=== PATIENT | female | born 1980 | race Caucasian/White ===

== ENCOUNTER 2017-12-15 18:42 | Emergency (ER) | payer SELFPAY ==
[2017-12-15 19:15] VITALS: BP 160/101; PULSE 78; RESP 14; TEMP 36.2; O2SAT 98
== END 2017-12-15 21:57 | disposition left against medical advice (07) ==
DX: R10.9 Unspecified abdominal pain (principal)
CPT/HCPCS: 99281; 99282

== ENCOUNTER → 2020-01-19 10:57 | Outpatient (CLI) | payer OTHER, MEDICAID, SELFPAY ==
--- NOTE | 2020-01-19 11:01 | DI.RAD.S_ITS ---
PROCEDURE: XR CHEST 2V INDICATIONS: shortness of breath TECHNIQUE: 2 views of the chest were acquired. COMPARISON: None. FINDINGS: Surgical changes and devices: None. Lungs and pleura: Lungs are clear. No pleural effusions or pneumothorax. Mediastinum: Mediastinal contours are normal. Heart size is normal. Bones and chest wall: No suspicious bony abnormalities. Soft tissues appear unremarkable. IMPRESSION: Normal for age, source of current shortness of breath symptoms is not seen. Dictated by: Kvng Mora M.D. on 01/19/2020 at 12:05 Approved by: Kvng Mora M.D. on 01/19/2020 at 12:05
== END ==
PROVIDERS: PCP Registered Nurse; Referring Provider Registered Nurse; Visit Provider Registered Nurse
DX: R06.02 Shortness of breath (principal)
CPT/HCPCS: 71046

== ENCOUNTER → 2020-01-20 09:37 | Outpatient (CLI) | payer OTHER, MEDICAID, SELFPAY ==
[2020-01-20 10:52] LABS: Add Manual Diff / Slide Review NO; Basophils Absolute Auto 0 /uL (0-100); Basophils Percent Auto 0.7 % (0-2); Eosinophils Absolute Auto 200 /uL (0-450); Eosinophils Percent Auto 2.7 % (2-4); Hemoglobin 11.8 g/dL (12.0-16.0); Lymphocytes Absolute Auto 1500 /uL (1100-4500); Lymphocytes Percent Auto 24.8 % (25-40); Mean Corpuscular Hemoglobin 24.9 PG (26-34); Mean Corpuscular Volume 80.5 fL (80-100); Monocytes Absolute Auto 400 /uL (0-900); Monocytes Percent Auto 6.5 % (3-14); Neutrophils Absolute Auto 4000 /uL (1500-7000); Neutrophils Percent Auto 65.3 % (50-75); Platelet Count 243 X10^3/uL (150-400); Red Blood Cell Count 4.73 X10^6/uL (4.0-5.2); Red Cell Distribution Width 18.6 % (11.6-14.8); White Blood Cell Count 6.1 X10^3/uL (4.5-11.0)
[2020-01-20 11:08] LABS: Alanine Aminotransferase 32 IU/L (<35); Albumin 3.7 g/dL (3.5-5.0); Albumin Globulin Ratio 1.2 (1.0-2.8); Alkaline Phosphatase 146 U/L (38-126); Aspartate Aminotransferase 36 IU/L (14-36); BUN Creatinine Ratio 14.3 (6-22); Bilirubin Total 0.4 mg/dL (0.2-1.3); Blood Urea Nitrogen 9 mg/dL (7-17); Calcium 8.9 mg/dL (8.4-10.2); Carbon Dioxide 26 mmol/L (22-32); Chloride 105 mmol/L (98-107); Cholesterol 205 mg/dL (140-199); Estimated Glomerular Filt Rate > 60.0 mL/min (>60); Globulin 3.2 g/dL (1.7-4.1); Glucose 97 mg/dL (70-100); HDL Cholesterol 48 mg/dL (40-60); HEMOLYSIS < 15 (0-50); LDL Cholesterol Calculated 125 mg/dL (<100); Potassium 4.3 mmol/L (3.4-5.1); Sodium 137 mmol/L (137-145); Total Protein 6.9 g/dL (6.3-8.2); Triglycerides 160 mg/dL (35-150)
[2020-01-20 11:15] LABS: NT-proBNP (BNP-Adult 18+) 59 pg/mL (<125)
[2020-01-20 11:49] LABS: HIV 1 & 2 Ab/Ag 4th Gen Combo NEGATIVE (NEGATIVE)
[2020-01-20 12:13] LABS: Urine N gonorrhoeae NOT DETECTED
[2020-01-20 12:14] LABS: Urine Chlamydia NOT DETECTED
[2020-01-20 14:53] LABS: UR Morphine/Opiate cutoff 300 Negative (Negative); Ur Creatinine Normal (Normal); Ur Specific Gravity Normal (Normal); Urine Amphetamines Negative (Negative); Urine Barbiturates Negative (Negative); Urine Benzodiazepines Negative (Negative); Urine Cocaine Negative (Negative); Urine MDMA Negative (Negative); Urine Methadone Negative (Negative); Urine Methamphetamines Negative (Negative); Urine Oxycodone Negative (Negative); Urine Phencyclidine Negative (Negative); Urine Tetrahydrocannabinol Negative (Negative); Urine Tricyclic Antidepressant Negative (Negative); Urine pH Normal (Normal)
[2020-01-21 04:36] LABS: RPR Screen Non Reactive (Non Reactive)
[2020-01-21 05:10] LABS: HBsAg Screen Negative (Negative); Hepatitis A Antibody IgM Negative (Negative); Hepatitis B Core Antibody IgM Negative (Negative); Hepatitis C Antibody 0.7 s/co ratio (0.0-0.9)
[2020-01-24 08:11] LABS: HSV 1 DNA Negative (Negative); HSV 2 DNA Negative (Negative)
== END ==
PROVIDERS: PCP Registered Nurse; Referring Provider Registered Nurse; Visit Provider Registered Nurse
DX: I10 Essential (primary) hypertension (principal); E66.01 Morbid (severe) obesity due to excess calories; Z11.3 Encounter for screening for infections with a predominantly sexual mode of transmission; R06.02 Shortness of breath; R60.0 Localized edema; Z00.01 Encounter for general adult medical examination with abnormal findings
CPT/HCPCS: 36415; 80053; 80061; 80074; 80305; 83880; 85025; 86592; 87389; 87491; 87529; 87591

== ENCOUNTER → 2020-06-19 13:16 | Outpatient (CLI) | payer OTHER, MEDICAID, SELFPAY ==
[2020-06-19 14:57] LABS: Add Manual Diff / Slide Review NO; Basophils Absolute Auto 0 /uL (0-100); Basophils Percent Auto 0.6 % (0-2); Eosinophils Absolute Auto 200 /uL (0-450); Eosinophils Percent Auto 3.1 % (2-4); Hematocrit 38.3 % (36-46); Lymphocytes Absolute Auto 1500 /uL (1100-4500); Lymphocytes Percent Auto 22.4 % (25-40); Mean Corpuscular HGB Conc 31.4 % (30-36); Mean Corpuscular Hemoglobin 25.9 PG (26-34); Mean Corpuscular Volume 82.6 fL (80-100); Monocytes Absolute Auto 500 /uL (0-900); Monocytes Percent Auto 7.1 % (3-14); Neutrophils Absolute Auto 4400 /uL (1500-7000); Neutrophils Percent Auto 66.8 % (50-75); Platelet Count 242 X10^3/uL (150-400); Red Blood Cell Count 4.63 X10^6/uL (4.0-5.2); Red Cell Distribution Width 19.8 % (11.6-14.8); White Blood Cell Count 6.5 X10^3/uL (4.5-11.0)
[2020-06-19 15:09] LABS: Alanine Aminotransferase 22 IU/L (<35); Albumin 3.7 g/dL (3.5-5.0); Albumin Globulin Ratio 1.2 (1.0-2.8); Alkaline Phosphatase 123 U/L (38-126); Aspartate Aminotransferase 29 IU/L (14-36); BUN Creatinine Ratio 18.2 (6-22); Bilirubin Total 0.4 mg/dL (0.2-1.3); Blood Urea Nitrogen 10 mg/dL (7-17); Calcium 8.5 mg/dL (8.4-10.2); Carbon Dioxide 30 mmol/L (22-32); Chloride 106 mmol/L (98-107); Cholesterol 212 mg/dL (140-199); Estimated Glomerular Filt Rate > 60.0 mL/min (>60); Globulin 3.1 g/dL (1.7-4.1); Glucose 104 mg/dL (70-100); HDL Cholesterol 43 mg/dL (40-60); HEMOLYSIS < 15 (0-50); LDL Cholesterol Calculated 140 mg/dL (<100); Sodium 138 mmol/L (137-145); Total Protein 6.8 g/dL (6.3-8.2); Triglycerides 143 mg/dL (35-150)
[2020-06-19 15:21] LABS: Free T4, Direct Thyroxine 1.14 ng/dL (0.78-2.19)
[2020-06-19 15:35] LABS: Thyroid Stimulating Hormone 0.799 uIU/mL (0.47-4.68)
== END ==
PROVIDERS: PCP Registered Nurse; Referring Provider Registered Nurse; Visit Provider Registered Nurse
DX: I10 Essential (primary) hypertension (principal); D64.9 Anemia, unspecified; E78.5 Hyperlipidemia, unspecified
CPT/HCPCS: 36415; 80053; 80061; 84439; 84443; 85025

== ENCOUNTER → 2020-10-25 08:19 | Outpatient (CLI) | payer OTHER, MEDICAID, SELFPAY ==
--- NOTE | 2020-10-25 08:25 | DI.RAD.S_ITS ---
PROCEDURE: XR FOOT RT MIN 3V INDICATIONS: right foot pain TECHNIQUE: 3 views of the foot were acquired. COMPARISON: None. FINDINGS: Bones: No fractures or dislocations. No suspicious bony lesions. Small plantar and dorsal calcaneal bone spurs. Soft tissues: No tibiotalar joint effusion. Achilles tendon appears normal. IMPRESSION: No fracture. No osseous lesion. If symptoms and/or clinical suspicion for pathology persists, further assessment with repeat radiographs (7-10 days) or advanced imaging (e.g. CT, MRI or bone scan) should be considered. Dictated by: Louise Mims MD, PhD on 10/25/2020 at 17:27 Approved by: Louise Mims MD, PhD on 10/25/2020 at 17:27
[2020-10-25 09:35] LABS: Alanine Aminotransferase 30 IU/L (<35); Albumin 3.5 g/dL (3.5-5.0); Albumin Globulin Ratio 1.2 (1.0-2.8); Alkaline Phosphatase 126 U/L (38-126); Aspartate Aminotransferase 35 IU/L (14-36); BUN Creatinine Ratio 14.1 (6-22); Bilirubin Total 0.2 mg/dL (0.2-1.3); Blood Urea Nitrogen 9 mg/dL (7-17); Calcium 9.6 mg/dL (8.4-10.2); Carbon Dioxide 28 mmol/L (22-32); Chloride 105 mmol/L (98-107); Estimated Glomerular Filt Rate > 60.0 mL/min (>60); Glucose 88 mg/dL (70-100); HEMOLYSIS < 15 (0-50); Potassium 4.4 mmol/L (3.4-5.1); Sodium 140 mmol/L (137-145); Total Protein 6.5 g/dL (6.3-8.2)
== END ==
PROVIDERS: PCP Registered Nurse; Referring Provider Registered Nurse; Visit Provider Registered Nurse
DX: M25.571 Pain in right ankle and joints of right foot (principal); I10 Essential (primary) hypertension
CPT/HCPCS: 36415; 73630; 80053

== ENCOUNTER 2020-10-25 17:04 | Observation (INO) | payer OTHER, MEDICAID, SELFPAY ==
[2020-10-25] VITALS (13 sets, daily range): BP systolic 138–188; BP diastolic 76–94; PULSE 59–97; RESP 14–24; TEMP 36.8; O2SAT 91–100; BMI 52.6
[2020-10-25 18:04] LABS: Add Manual Diff / Slide Review NO; Basophils Absolute Auto 0 /uL (0-100); Basophils Percent Auto 0.6 % (0-2); Eosinophils Absolute Auto 100 /uL (0-450); Eosinophils Percent Auto 1.7 % (2-4); Hematocrit 38.9 % (36-46); Hemoglobin 12.5 g/dL (12.0-16.0); Lymphocytes Absolute Auto 1600 /uL (1100-4500); Lymphocytes Percent Auto 19.3 % (25-40); Mean Corpuscular HGB Conc 32.2 % (30-36); Mean Corpuscular Hemoglobin 26.6 PG (26-34); Mean Corpuscular Volume 82.5 fL (80-100); Monocytes Absolute Auto 600 /uL (0-900); Monocytes Percent Auto 7.9 % (3-14); Neutrophils Absolute Auto 5800 /uL (1500-7000); Neutrophils Percent Auto 70.5 % (50-75); Platelet Count 242 X10^3/uL (150-400); Red Blood Cell Count 4.71 X10^6/uL (4.0-5.2); Red Cell Distribution Width 17.5 % (11.6-14.8); White Blood Cell Count 8.3 X10^3/uL (4.5-11.0)
--- NOTE | 2020-10-25 18:11 | ED.ABDPAIN ---
HPI - Abdominal Pain General Chief Complaint: Abdominal Pain Stated Complaint: rib and abdominal pain Time Seen by Provider: 10/25/20 17:59 Source: patient Mode of arrival: Ambulatory Limitations: no limitations History of Present Illness HPI narrative: 40-year-old female smoker with history of hypertension and hyperlipidemia presents with a chief complaint of rather sudden onset severe epigastric and right upper quadrant pain that started this afternoon. She states any motion including deep breath seems to make it worse. She denies any relation between eating or drinking. She denies nausea, vomiting or diarrhea. She denies any injury or overuse. She has had no fever or chills. MD complaint: abdominal pain Onset (ago): hour(s) Pain Consistency: constant Location: RUQ and epigastric Severity: moderate Quality: cramping and stabbing Radiation: none Relieving factors: rest Exacerbating factors: movement Associated symptoms: denies other symptoms Related Data Previous Rx's Medication Instructions Recorded losartan 50 mg tablet 50 mg PO DAILY 90 Days #90 tab 10/25/20 simvastatin 20 mg tablet 20 mg PO BEDTIME 90 Days #90 tab 10/25/20 Allergies Allergy/AdvReac Type Severity Reaction Status Date / Time No Known Drug Allergies Allergy Verified 10/25/20 17:36 Review of Systems Constitutional Constitutional: Denies chills, Denies fatigue, Denies fever(s), Denies frequent falls, Denies lethargy and Denies weakness Eyes Eyes: Denies change in vision, Denies eye discharge, Denies irritation and Denies loss of vision ENT Ears, Nose, Mouth, and Throat: Denies change in voice, Denies dizziness, Denies neck pain, Denies sore throat and Denies throat swelling Cardiovascular Cardiovascular: Denies chest pain, Denies irregular heart rhythm, Denies lightheadedness, Denies palpitations, Denies dyspnea, Denies dyspnea on exertion and Denies orthopnea Respiratory Respiratory: Denies cough, Denies dyspnea, Denies dyspnea on exertion and Denies wheezing Gastrointestinal Gastrointestinal: Reports abdominal pain, Denies change in bowel habits, Denies diarrhea, Denies nausea and Denies vomiting Musculoskeletal Musculoskeletal: Denies neck pain and Denies numbness Integumentary/Breasts Skin/Breast: Denies pruritus, Denies erythema, Denies rash and Denies wounds Neurologic Neurologic: Denies behavioral changes, Denies confusion, Denies dizziness, Denies frequent falls, Denies loss of vision, Denies numbness and Denies weakness Psychiatric Psychiatric: Denies anxiety, Denies behavioral changes, Denies confusion, Denies depression, Denies homicidal ideation and Denies suicidal ideation Endocrine Endocrine: Denies fatigue, Denies flushing and Denies palpitations Hematologic/Lymphatic Hematologic/Lymphatic: Denies easy bruising Allergic/Immunologic Allergic/Immunologic: Denies urticaria, Denies throat swelling and Denies wheezing Patient History Medical History Carpal tunnel syndrome (~2009) Chicken pox Right ankle pain Social History Smoking Status: Current every day smoker Smoking Status: Current every day smoker alcohol intake frequency: 3 or more drinks per day Substance Use Type: marijuana Exam Narrative Exam Narrative: GENERAL: [40] year old patient appears stated age. Well-nourished, well-developed patient, in mild distress. Tearful, complaining of pain, rubbing her upper abdomen HEAD: Atraumatic. Normocephalic. EYES: Pupils equal round and reactive. Extraocular motions intact. No scleral icterus. No injection or drainage. ENT: Nose without bleeding, purulent drainage. Throat without erythema, tonsillar hypertrophy or exudate. Airway patent. NECK: Trachea midline. Non tender CARDIOVASCULAR: Regular rate and rhythm without murmurs, gallops, or rubs. RESPIRATORY: Clear to auscultation. Breath sounds equal bilaterally. No wheezes, rales, or rhonchi. GASTROINTESTINAL: Abdomen soft, severe upper belly pain on exam, nondistended. EXTREMITIES: No edema or joint tenderness. BACK: Nontender without deformity or crepitance. No flank tenderness. NEURO: AOx3. SKIN: No rash or erythema of visible areas Initial Vital Signs Initial Vital Signs: Vital Signs Temperature 98.2 F 10/25/20 17:33 Pulse Rate 75 10/25/20 17:33 Respiratory Rate 20 10/25/20 17:33 Blood Pressure 188/87 H 10/25/20 17:33 Pulse Oximetry 98 10/25/20 17:33 Course Orders Ordered: ED Orders 10/25/20 17:39 EKG-12 Lead Stat 10/25/20 17:56 Complete Blood Count AUTO DIFF Stat Comprehensive Metabolic Panel Stat Lipase Stat 10/25/20 18:18 US abdomen limited Stat 10/25/20 18:50 COVID19 - ADMIT ([employer] swab/PCR) Stat Sodium Chloride (Normal Saline 0.9%) 1,000 mls @ 150 mls/hr IV CONT ESTER Last Admin: 10/25/20 19:18 Dose: 150 mls/hr Documented by: CLAUDIA Discontinued Medications Hydromorphone HCl (Hydromorphone 0.5 Mg Inj) 0.5 mg IV NOW ONE Stop: 10/25/20 19:11 Last Admin: 10/25/20 19:18 Dose: 0.5 mg Documented by: CLAUDIA Piperacillin Sod/Tazobactam (Sod 4.5 gm/ Sodium Chloride) 100 mls @ 200 mls/hr IV NOW ONE Stop: 10/25/20 19:12 Last Infusion: 10/25/20 20:45 Dose: 0 mls/hr Documented by: Admin: 10/25/20 19:18 Dose: 200 mls/hr Documented by: CLAUDIA Ondansetron HCl (Ondansetron 4 Mg/2 Ml Inj) 4 mg IV NOW ONE Stop: 10/25/20 19:11 Last Admin: 10/25/20 19:18 Dose: 4 mg Documented by: CLAUDIA Vital Signs Vital signs: Vital Signs - 8 hr 10/25/20 17:33 Temperature 98.2 F Pulse Rate 75 Respiratory Rate 20 Blood Pressure 188/87 H Pulse Oximetry 98 MDM - Abdominal Pain Lab Data Result diagrams: 10/25/20 17:56 10/25/20 17:56 Labs: Lab Results 10/25/20 10/25/20 10/25/20 Range/Units 17:56 17:56 18:50 WBC 8.3 (4.5-11.0) X10^3/uL RBC 4.71 (4.0-5.2) X10^6/uL Hgb 12.5 (12.0-16.0) g/dL Hct 38.9 (36-46) % MCV 82.5 (80-100) fL MCH 26.6 (26-34) PG MCHC 32.2 (30-36) % RDW 17.5 H (11.6-14.8) % Plt Count 242 (150-400) X10^3/uL Neut % (Auto) 70.5 (50-75) % Lymph % (Auto) 19.3 L (25-40) % [place] % (Auto) 7.9 (3-14) % Eos % (Auto) 1.7 L (2-4) % Baso % (Auto) 0.6 (0-2) % Neut # (Auto) 5800 (4702-8340) /uL Lymph # (Auto) 1600 (4353-7239) /uL [place] # (Auto) 600 (0-900) /uL Eos # (Auto) 100 (0-450) /uL Baso # (Auto) 0 (0-100) /uL Sodium 136 L (137-145) mmol/L Potassium 3.9 (3.4-5.1) mmol/L Chloride 105 (98-107) mmol/L Carbon Dioxide 24 (22-32) mmol/L BUN 7 (7-17) mg/dL Creatinine 0.56 (0.52-1.04) mg/dL Estimated GFR > 60.0 (>60) mL/min BUN/Creatinine Ratio 12.5 (6-22) Glucose 122 H (70-100) mg/dL Calcium 9.6 (8.4-10.2) mg/dL Total Bilirubin 0.3 (0.2-1.3) mg/dL AST 37 H (14-36) IU/L ALT 31 (<35) IU/L Alkaline Phosphatase 124 (38-126) U/L Total Protein 6.9 (6.3-8.2) g/dL Albumin 3.7 (3.5-5.0) g/dL Globulin 3.2 (1.7-4.1) g/dL Albumin/Globulin Ratio 1.2 (1.0-2.8) Lipase 33 (23-300) U/L SARS-CoV-2 (PCR) Negative (Negative) Imaging Data US - abdomen: Radiologist's Impression: [address] [id number] ReportSigned Patient: Lizzy Early AMR#: [id number]: 1980Acct:[id number]/Sex: 40 / FDate of Service: 10/25/20Loc: EDAccession Number: [id number] Procedure: US abdomen limited Ordering Provider: Shoaib Esparza D.O. PROCEDURE: US ABDOMEN LIMITED INDICATIONS: RUQ pain TECHNIQUE: Real-time scanning was performed of the abdominal and retroperitoneal organs, with image documentation. COMPARISON: None. FINDINGS: Liver demonstrates diffuse fatty infiltration and mild enlargement. Multiple calculi within the gallbladder lumen are present, including within neck. No gallbladder wall thickening. IMPRESSION: 1. Hepatic steatosis. 2. Cholelithiasis with no evidence of cholecystitis Dictated by: Titus Pineda M.D. on 10/25/2020 at 19:00 Approved by: Titus Pineda M.D. on 10/25/2020 at 19:01 Discharge Plan Departure Patient Disposition: Admitted As Inpatient Clinical Impression: Cholelithiasis Admit Date/Time: 10/25/20 19:18 Admit Provider: Gabriel Melendez
--- NOTE | 2020-10-25 18:18 | DI.US.S_ITS ---
PROCEDURE: US ABDOMEN LIMITED INDICATIONS: RUQ pain TECHNIQUE: Real-time scanning was performed of the abdominal and retroperitoneal organs, with image documentation. COMPARISON: None. FINDINGS: Liver demonstrates diffuse fatty infiltration and mild enlargement. Multiple calculi within the gallbladder lumen are present, including within neck. No gallbladder wall thickening. IMPRESSION: 1. Hepatic steatosis. 2. Cholelithiasis with no evidence of cholecystitis Dictated by: Titus Pineda M.D. on 10/25/2020 at 19:00 Approved by: Titus Pineda M.D. on 10/25/2020 at 19:01
[2020-10-25 18:22] LABS: Alanine Aminotransferase 31 IU/L (<35); Albumin 3.7 g/dL (3.5-5.0); Albumin Globulin Ratio 1.2 (1.0-2.8); Alkaline Phosphatase 124 U/L (38-126); Aspartate Aminotransferase 37 IU/L (14-36); BUN Creatinine Ratio 12.5 (6-22); Bilirubin Total 0.3 mg/dL (0.2-1.3); Blood Urea Nitrogen 7 mg/dL (7-17); Calcium 9.6 mg/dL (8.4-10.2); Carbon Dioxide 24 mmol/L (22-32); Chloride 105 mmol/L (98-107); Estimated Glomerular Filt Rate > 60.0 mL/min (>60); Globulin 3.2 g/dL (1.7-4.1); Glucose 122 mg/dL (70-100); HEMOLYSIS < 15 (0-50); Lipase 33 U/L (23-300); Potassium 3.9 mmol/L (3.4-5.1); Sodium 136 mmol/L (137-145); Total Protein 6.9 g/dL (6.3-8.2)
[2020-10-25] MEDS: SODIUM CHLORIDE 0.9% 1,000 ML 150 ML IV (19:18)
[2020-10-25] MEDS: HYDROMORPHONE 0.5 MG INJ IV (19:18)
[2020-10-25] MEDS: PIPERACILLIN/TAZO 4.5 GM in SODIUM CHLORIDE 0.9% 100 ML 200 ML IV (19:18)
[2020-10-25] MEDS: ONDANSETRON 4 MG/2 ML INJ IV (19:18)
[2020-10-25 19:49] LABS: COVID19 - ADMIT (NP swab/PCR) Negative (Negative)
[2020-10-26] VITALS (18 sets, daily range): BP systolic 105–147; BP diastolic 42–97; PULSE 58–84; RESP 12–31; TEMP 35.9–36.9; O2SAT 94–100; BMI 52.5
--- NOTE | 2020-10-26 | PATH_ITS ---
[facility] Accession Number: [id number] . 01 Material submitted: . gallbladder - GALLBLADDER . 02 Diagnosis: Gallbladder, Cholecystectomy: Chronic cholecystitis with cholelithiasis. Negative for dysplasia and malignancy. [facility] 10/31/2020 0922 Local . 02 Electronically signed: . Lizzy Martinez MD, Pathologist NPI- [id number] . 01 Gross description: . The specimen is received in formalin, labeled gallbladder and consists of a 7.0 x 3.0 x 2.5 cm intact gallbladder with a 0.5 cm in diameter cystic duct. The serosa is johnson-pink and smooth. Opening reveals green viscous bile with a 2.5 x 1.5 x 1.5 cm green bosselated cholelith lodged within the neck of the specimen. The mucosa is johnson-green and velvety and the wall thickness measures 0.3 cm. Softlines Supervisor sections are submitted to include the en face cystic duct margin (blue) in cassette A1. (EA:[id number]) /V 10/30/2020 1040 Local . 02 Pathologist provided ICD-10: K80.60 . 02 CPT . 849586 Performed at: 01 [facility] [address], [place], [place] [id number] MD Zheng Reddy MD Phone: [phone] Performed at: 02 [facility] [address] [place], [place] [id number] MD Lizzy Martinez MD Phone: [phone]
[2020-10-26] MEDS: PIPERACILLIN/TAZO 4.5 GM in SODIUM CHLORIDE 0.9% 100 ML 25 ML IV ×3 (01:09→16:08)
--- NOTE | 2020-10-26 01:54 | PC.NURSE ---
0015 Pt. admitted to room 222, oriented to her room. Showed her how to use her call light TV & bed controls. Denies any pain & nausea upon admit. Will continue POC & monitor.
[2020-10-26] MEDS: SODIUM CHLORIDE 0.9% 1,000 ML 150 ML IV ×2 (05:27→11:39)
--- NOTE | 2020-10-26 09:19 | PM.HP.1 ---
History of Present Illness History of Present Illness Date Patient Seen: 10/26/20 Time Patient Seen: 09:19 Chief complaint: rib and abdominal pain Narrative: Lizzy is a 40-year-old woman history of hypertension and obesity who is admitted to the hospital for acute cholecystitis. Yesterday she developed severe right upper quadrant pain with associated bloating and nausea. In the emergency room, afebrile WBC 8 total bilirubin 0.3 normal LFTs. Ultrasound of the right upper quadrant demonstrated multiple gallstones including a stone stuck within the neck of the gallbladder at that time there was no pericholecystic fluid or wall thickening. Overnight she received Zosyn and her pain has improved but not resolved. Over the past 5 years she has had several similar episodes. Medical history is significant for obesity, BMI 53, hypertension, alcohol and methamphetamine use. She consumes approximately 1 L of hard liquor every 3 days, last methamphetamine use was 3 days ago. Prior abdominal surgery includes laparoscopic appendectomy. Patient History Medical History Alcohol abuse Carpal tunnel syndrome (~2009) Chicken pox Essential hypertension Methamphetamine abuse Morbid obesity Right ankle pain Surgical History History of appendectomy Family & Social History Social History: household members significant other Prior Living Arrangements Apartment/Condo Safety & Behavioral: Feels Safe in Current Yes Environment Been Physically Hurt or No Threatened By a Person Suicidal Ideation Description None Suicide Plan Description No Plan Tobacco & Substance use: Tobacco type cigarettes Smoking Status Current every day smoker alcohol intake current alcohol intake frequency 3 or more drinks per day Substance Use Type marijuana Meds Home Medications and Allergies Home Medications Medication Instructions Recorded Confirmed Type losartan 50 mg tablet 50 mg PO DAILY 90 Days #90 tab 10/25/20 10/26/20 Rx simvastatin 20 mg tablet 20 mg PO BEDTIME 90 Days #90 tab 10/25/20 10/26/20 Rx Allergies Allergy/AdvReac Type Severity Reaction Status Date / Time No Known Drug Allergies Allergy Verified 10/25/20 17:36 Review of Systems Review of Systems ROS: Yes All systems reviewed with the patient and are negative except as otherwise documented Exam Vital Signs (past 8 hours): - 10/26/20 03:45 Temperature 98.4 F Pulse Rate 80 Respiratory Rate 16 Blood Pressure 147/91 H Pulse Oximetry 96 Oxygen Delivery Method Room Air Narrative Exam Narrative: GENERAL-obese adult female, no acute distress HEENT-no scleral icterus, hearing intact NECK-no JVD, trachea midline CVS- regular rate, no peripheral edema RESP-unlabored respiratory effort, no audible wheezing GI-tender right upper quadrant. No peritonitis. MSK-no cyanosis or clubbing, extremities without deformity SKIN-warm, dry NEURO-alert and oriented, no focal deficits PYSCH-Appropriate mood and affect Objective Labs Result Diagrams: 10/25/20 17:56 10/25/20 17:56 Labs: Laboratory Results - last 24 hr 10/25/20 10/25/20 10/25/20 17:56 17:56 18:50 WBC 8.3 RBC 4.71 Hgb 12.5 Hct 38.9 MCV 82.5 MCH 26.6 MCHC 32.2 RDW 17.5 H Plt Count 242 Neut % (Auto) 70.5 Lymph % (Auto) 19.3 L [place] % (Auto) 7.9 Eos % (Auto) 1.7 L Baso % (Auto) 0.6 Neut # (Auto) 5800 Lymph # (Auto) 1600 [place] # (Auto) 600 Eos # (Auto) 100 Baso # (Auto) 0 Sodium 136 L Potassium 3.9 Chloride 105 Carbon Dioxide 24 BUN 7 Creatinine 0.56 Estimated GFR > 60.0 BUN/Creatinine Ratio 12.5 Glucose 122 H Calcium 9.6 Total Bilirubin 0.3 AST 37 H ALT 31 Alkaline Phosphatase 124 Total Protein 6.9 Albumin 3.7 Globulin 3.2 Albumin/Globulin Ratio 1.2 Lipase 33 SARS-CoV-2 (PCR) Negative Assessment & Plan Assessment and plan (1) Acute cholecystitis: Status: Acute Assessment & Plan narrative: 40-year-old woman with morbid obesity and hypertension and substance abuse admitted for acute cholecystitis. She has persistent right upper quadrant pain on exam, normal laboratory studies, imaging demonstrates stone lodged within the neck of the gallbladder. -NPO -IV fluids -Zosyn -plan for laparoscopic cholecystectomy today -monitor for signs of alcohol withdrawal I explained to the patient that she has acute cholecystitis, we reviewed her history labs and imaging. Recommended that we proceed with a laparoscopic cholecystectomy. Technical details of the operation were discussed with the patient. Operative risks including bleeding, infection, damage to surrounding structures, bile leak and injury, conversion to open were discussed. She understands that her obesity, BMI 53, alcohol and methamphetamine use place her at higher risk of morbidity and mortality. Her questions have been answered and she is in agreement with this plan.
[2020-10-26] MEDS: LOSARTAN 50 MG TABLET PO (09:57)
--- NOTE | 2020-10-26 12:24 | PC.NURSE ---
Addendum entered by Xochilt Hayes R.N. 10/26/20 14:09: Patients lower extremities are swollen and slightly pink. She states that they are looking better today than usual. She has 3+ edema and her lower extremity skin is taut. Patient has been sleeping this whole shift and has not required any pain medication. She is waiting to go to surgery around 1600. Original Note: Patient has been sleeping most of the shift. She has her ivf infusing at 150 with iv anbtibiotic infusing concurrently. Denies pain. CIWA score 0. Patient will be going down for surgery between [id number]. Given blood pressure medication and patient has been npo.
--- NOTE | 2020-10-26 14:48 | CM.DANOTE ---
Discharge Planning/Care Management DCP: assessment: Case received, EMR reviewed and met this morning with pt. Introduced self and role. Pt confirmed she is going to surgery today about 1400 to have my gall bladder taken out. Pt is a 40 year old female who admitted last evening to care of [facility]. PCP: Ann Marie Still Payer: [place]/Medicaid. Pt's weight is noted: 294 lbs which may impact her recovery from the surgery. P: at this time expectation by pt is that she will d/c to home once she has been medically cleared for same. Kaden May will pick her up. DCP team to follow prn as POC unfolds. CM Discharge Assessment Start: 10/26/20 14:47 Freq: Status: Active Protocol: Document 10/26/20 14:47 ITV (Rec: 10/26/20 14:48 ITV [id number]) Discharge Planning Assessment Advance Directives? No History Provided By Patient,Medical Record Prior Living Arrangements Apartment/Condo Household Members significant other Comment kaden Dukes: [phone] Willing to Return to Facility? No Independent with ADL's Yes Is patient alert and oriented? Yes Review Status In Process
--- NOTE | 2020-10-26 15:43 | PM.PREOP ---
Pre-operative Note COVID-19 COVID-19 status: Negative Result date/Date tested (Pos, Neg/Pending): 10/26/20 Interval Note History & Physical reviewed/Exam performed by Physician: Yes Changes to H&P: No H&P completed within 30 days and has changed as indicated here:: I have separately met the patient discussed the operation with her and examined her. Risks detailed include bleeding, infection, injury to internal organ or docked which would require major operation to repair, bile leakage postoperatively which may necessitate the need for an ERCP, and hernia were all discussed with her. Restrictions postoperatively were also discussed. All questions were answered.
--- NOTE | 2020-10-26 16:13 | PC.NURSE ---
Addendum entered by Lesli Xiong R.N. 10/26/20 22:41: Pt to room 222 from PACU @ 2200 drowsy, but rousable. Placed on 2L per nc and 02 level upper 90's. Continuous monitor in place. BERTRAND compressed and large bandaids dry and intact to abdomen. Aragon to gravity with pale urine. Taking oral fluids vigorously and c/o nausea so cautioned pt to slow down with oral intake. Medicated for pain in PACU. Dozes easily. Original Note: Pt rouses easily to voice, but mostly sleeping since this evening shift began. Seizure pads in place. Pt's 1600 antibiotic was scanned, but not infused as O.R. RN arrives to transport pt to surgery. Was informed this antibiotic is due now. Pt left room 222 alert, awake, conversant and in stable condition.
--- NOTE | 2020-10-26 19:23 | SUR.OPER ---
Supine on padded OR bed, head on pillow, safety belt at thigh, left arm padded and tucked at side. Right arm secured on padded arm oard <90 degrees abduction. Legs uncrossed. Padded footboard in place. Tape over blanket to secure lower legs.
[2020-10-26] MEDS: BUPIVACAINE 0.5% (PF) VIAL 30 ML INJ (19:34)
[2020-10-26] MEDS: LACTATED RINGERS 1,000 ML 42 ML IV (20:28)
--- NOTE | 2020-10-26 21:05 | PM.OP.1 ---
Operative Date/Time/Diagnoses Date of procedure: 10/26/20 Time of procedure: 21:05 Pre-op diagnosis: Cholelithiasis with cholecystitis Post-op diagnosis: same Procedure & Clinicians Procedure: Laparoscopic cholecystectomy Same procedure as scheduled: Yes Indications: Right upper quadrant pain abnormal ultrasound Surgeon: Kaushik Flores Click Yes if Unassisted: Yes Anesthesia Type: General Operative Notes Findings: Inflamed gallbladder with a significant amount of edema in the wall. Large amount of intraperitoneal fat. Large stone stuck in the neck of the gallbladder. Closure Type: primary Specimen(s): other (Gallbladder and contents) Prosthetic devices, grafts, tissues, transplants, or devices: None Applied: drain(s) (7 mm Rolo-Schwartz drain placed in region of the gallbladder fossa an cystic duct stump) Estimated Blood Loss (mL): 15 Blood products transfused: none Complications: none Post-operative Condition: stable Disposition: PACU
[2020-10-26] MEDS: ONDANSETRON 4 MG/2 ML INJ IV (21:08)
[2020-10-26] MEDS: OXYCODONE IR 5 MG TABLET PO (21:08)
[2020-10-26] MEDS: FUROSEMIDE 40 MG/4 ML VIAL IV (21:18)
[2020-10-26] MEDS: LACTATED RINGERS 1,000 ML 125 ML IV (22:29)
[2020-10-27] VITALS (11 sets, daily range): BP systolic 123–162; BP diastolic 67–97; PULSE 55–87; RESP 13–18; TEMP 36.3–37.2; O2SAT 95–100
[2020-10-27] MEDS: PIPERACILLIN/TAZO 4.5 GM in SODIUM CHLORIDE 0.9% 100 ML 200 ML IV (02:09)
--- NOTE | 2020-10-27 02:31 | PC.NURSE ---
Patient's significant other ( kaden) Eliecer Dukes here visited patient. Pt. too sleepy to interact with her fiancee, he stayed with patient for approximately 15 minutes. He just got off work from the [employer], went home & took patient's jewelry; her engagement ring & bracelet.
[2020-10-27] MEDS: OXYCODONE IR 5 MG TABLET 10 MG PO (05:31)
[2020-10-27 06:00] LABS: Alanine Aminotransferase 111 IU/L (<35); Albumin 3.3 g/dL (3.5-5.0); Alkaline Phosphatase 159 U/L (38-126); Aspartate Aminotransferase 148 IU/L (14-36); BUN Creatinine Ratio 7.6 (6-22); Bilirubin Total 0.5 mg/dL (0.2-1.3); Blood Urea Nitrogen 5 mg/dL (7-17); Calcium 8.4 mg/dL (8.4-10.2); Carbon Dioxide 29 mmol/L (22-32); Chloride 103 mmol/L (98-107); Estimated Glomerular Filt Rate > 60.0 mL/min (>60); Globulin 3.2 g/dL (1.7-4.1); Glucose 84 mg/dL (70-100); HEMOLYSIS < 15 (0-50); Sodium 136 mmol/L (137-145); Total Protein 6.5 g/dL (6.3-8.2)
[2020-10-27 06:05] LABS: Hematocrit 37.1 % (36-46); Mean Corpuscular HGB Conc 32.5 % (30-36); Mean Corpuscular Hemoglobin 27.4 PG (26-34); Mean Corpuscular Volume 84.3 fL (80-100); Platelet Count 241 X10^3/uL (150-400); Red Cell Distribution Width 17.7 % (11.6-14.8); White Blood Cell Count 8.3 X10^3/uL (4.5-11.0)
[2020-10-27 07:05] LABS: Add Manual Diff / Slide Review NO; Basophils Percent Auto 0.7 % (0-2); Eosinophils Percent Auto 0.5 % (2-4); Monocytes Percent Auto 4.9 % (3-14); Neutrophils Absolute Auto 6500 /uL (1500-7000); Neutrophils Percent Auto 77.9 % (50-75)
[2020-10-27 07:06] LABS: Basophils Absolute Auto 100 /uL (0-100); Eosinophils Absolute Auto 0 /uL (0-450); Lymphocytes Absolute Auto 1300 /uL (1100-4500); Monocytes Absolute Auto 400 /uL (0-900)
[2020-10-27] MEDS: LOSARTAN 50 MG TABLET PO (08:44)
[2020-10-27] MEDS: SENNOSIDES 8.6 MG TABLET 17.2 MG PO (08:44)
[2020-10-27] MEDS: ENOXAPARIN 40 MG/0.4 ML SYRINGE SUBCUT (08:44)
--- NOTE | 2020-10-27 10:01 | PM.DS.1 ---
History of Present Illness History of Present Illness Date Patient Seen: 10/27/20 Time Patient Seen: 10:01 Chief complaint: rib and abdominal pain Narrative: Lizzy is a 40-year-old woman history of hypertension and obesity who is admitted to the hospital for acute cholecystitis. Yesterday she developed severe right upper quadrant pain with associated bloating and nausea. In the emergency room, afebrile WBC 8 total bilirubin 0.3 normal LFTs. Ultrasound of the right upper quadrant demonstrated multiple gallstones including a stone stuck within the neck of the gallbladder at that time there was no pericholecystic fluid or wall thickening. Overnight she received Zosyn and her pain has improved but not resolved. Over the past 5 years she has had several similar episodes. Medical history is significant for obesity, BMI 53, hypertension, alcohol and methamphetamine use. She consumes approximately 1 L of hard liquor every 3 days, last methamphetamine use was 3 days ago. Prior abdominal surgery includes laparoscopic appendectomy. Patient History Medical History Alcohol abuse Carpal tunnel syndrome (~2009) Chicken pox Essential hypertension Methamphetamine abuse Morbid obesity Right ankle pain Surgical History History of appendectomy Family & Social History Social History: household members significant other Prior Living Arrangements Apartment/Condo Safety & Behavioral: Feels Safe in Current Yes Environment Been Physically Hurt or No Threatened By a Person Suicidal Ideation Description None Suicide Plan Description No Plan Tobacco & Substance use: Tobacco type cigarettes Smoking Status Current every day smoker alcohol intake current alcohol intake frequency 3 or more drinks per day Substance Use Type marijuana Meds Home Medications and Allergies Home Medications Medication Instructions Recorded Confirmed Type losartan 50 mg tablet 50 mg PO DAILY 90 Days #90 tab 10/25/20 10/26/20 Rx simvastatin 20 mg tablet 20 mg PO BEDTIME 90 Days #90 tab 10/25/20 10/26/20 Rx Allergies Allergy/AdvReac Type Severity Reaction Status Date / Time No Known Drug Allergies Allergy Verified 10/25/20 17:36 Review of Systems Review of Systems ROS: Yes All systems reviewed with the patient and are negative except as otherwise documented Exam Vital Signs (past 8 hours):- 10/26/20 03:45 Temperature 98.4 F Pulse Rate 80 Respiratory Rate 16 Blood Pressure 147/91 H Pulse Oximetry 96 Oxygen Delivery Method Room Air Narrative Exam Narrative: GENERAL-obese adult female, no acute distress HEENT-no scleral icterus, hearing intact NECK-no JVD, trachea midline CVS- regular rate, no peripheral edema RESP-unlabored respiratory effort, no audible wheezing GI-tender right upper quadrant. No peritonitis. MSK-no cyanosis or clubbing, extremities without deformity SKIN-warm, dry NEURO-alert and oriented, no focal deficits PYSCH-Appropriate mood and affect Objective Labs Result Diagrams: 10/25/20 17:56 document embedded image 10/25/20 17:56 document embedded image Labs:Laboratory Results - last 24 hr 10/25/20 10/25/20 10/25/20 17:56 17:56 18:50 WBC 8.3 RBC 4.71 Hgb 12.5 Hct 38.9 MCV 82.5 MCH 26.6 MCHC 32.2 RDW 17.5 H Plt Count 242 Neut % (Auto) 70.5 Lymph % (Auto) 19.3 L [place] % (Auto) 7.9 Eos % (Auto) 1.7 L Baso % (Auto) 0.6 Neut # (Auto) 5800 Lymph # (Auto) 1600 [place] # (Auto) 600 Eos # (Auto) 100 Baso # (Auto) 0 Sodium 136 L Potassium 3.9 Chloride 105 Carbon Dioxide 24 BUN 7 Creatinine 0.56 Estimated GFR > 60.0 BUN/Creatinine Ratio 12.5 Glucose 122 H Calcium 9.6 Total Bilirubin 0.3 AST 37 H ALT 31 Alkaline Phosphatase 124 Total Protein 6.9 Albumin 3.7 Globulin 3.2 Albumin/Globulin Ratio 1.2 Lipase 33 SARS-CoV-2 (PCR) Negative Assessment & Plan Assessment and plan (1) Acute cholecystitis: Status: Acute Assessment & Plan narrative: 40-year-old woman with morbid obesity and hypertension and substance abuse admitted for acute cholecystitis. She has persistent right upper quadrant pain on exam, normal laboratory studies, imaging demonstrates stone lodged within the neck of the gallbladder. -NPO -IV fluids -Zosyn -plan for laparoscopic cholecystectomy today -monitor for signs of alcohol withdrawal I explained to the patient that she has acute cholecystitis, we reviewed her history labs and imaging. Recommended that we proceed with a laparoscopic cholecystectomy. Technical details of the operation were discussed with the patient. Operative risks including bleeding, infection, damage to surrounding structures, bile leak and injury, conversion to open were discussed. She understands that her obesity, BMI 53, alcohol and methamphetamine use place her at higher risk of morbidity and mortality. Her questions have been answered and she is in agreement with this plan. Discharge Providers Provider Date of admission: 10/25/20 19:18 Discharge Date: 10/27/20 Primary care physician: LUIGI Elaine Consults: 10/26/20 22:11 Consult to Discharge Planning Routine Comment: Discharge provider: María Morales MD Summary Hospital Course Discharge Diagnosis: Acute cholecystitis Hospital Course: Admitted to hospital, taken to OR for lap choley, kept overnight for drain management and pain control. Drain was non bilious in AM and therefore removed. Diet advanced. Patient to be discharged home with PO pain meds and plans to schedule follow up with Dr. Flores in 1-2 weeks. Status at Discharge Cognitive/behavioral status at discharge: at baseline, oriented Functional status at discharge: independent ambulation Overall status at discharge: patient is progressing back to baseline Exam Vital Signs (past 8 hours): - 10/27/20 02:55 10/27/20 05:05 10/27/20 05:37 Temperature 98.9 F Pulse Rate 70 73 Respiratory Rate 16 18 Blood Pressure 146/90 H 123/70 Pulse Oximetry 98 98 97 10/27/20 08:43 10/27/20 08:44 Temperature 98.3 F Pulse Rate 82 87 Respiratory Rate 13 Blood Pressure 146/88 H 146/88 H Pulse Oximetry 100 Oxygen Delivery Method Nasal Cannula Oxygen Flow Rate 1 Narrative Exam Narrative: GENERAL: Alert, comfortable, morbidly obese. Appears stated age. Answers questions promptly and appropriately. Vital signs noted. HENT: Normocephalic, atraumatic. Hearing intact. EYES: Conjunctiva pink, sclera white, no periorbital swelling. CARDIOVASCULAR: Regular rate. No pedal edema. RESPIRATORY: Non-tachypneic, breathing comfortably on room air. GASTROINTESTINAL: Abdomen soft, rounded, dressings intact, BERTRAND drain serosanguineous, drain removed during exam GENITALURINARY: No flank tenderness. MUSCULOSKELETAL: Equal tone and mass bilaterally. SKIN: Warm, dry, soft, appropriate color for ethnicity. No other lesions, rashes, or wounds. No jaundice NEURO: Alert and Oriented X 3. No gross sensory deficits, or cognitive issues. PSYCH: Appropriate affect and mood. Objective Labs Result Diagrams: 10/27/20 05:15 10/27/20 05:15 Labs: Laboratory Results - last 24 hr 10/27/20 10/27/20 05:15 05:15 WBC 8.3 RBC 4.40 Hgb 12.0 Hct 37.1 MCV 84.3 MCH 27.4 MCHC 32.5 RDW 17.7 H Plt Count 241 Neut % (Auto) 77.9 H Lymph % (Auto) 16.0 L [place] % (Auto) 4.9 Eos % (Auto) 0.5 L Baso % (Auto) 0.7 Neut # (Auto) 6500 Lymph # (Auto) 1300 [place] # (Auto) 400 Eos # (Auto) 0 Baso # (Auto) 100 Total Counted Cancelled Seg Neutrophils % Cancelled Band Neutrophils % Cancelled Lymphocytes % (Manual) Cancelled Atypical Lymphs % Cancelled Monocytes % (Manual) Cancelled Eosinophils % (Manual) Cancelled Basophils % (Manual) Cancelled Metamyelocytes % Cancelled Myelocytes % Cancelled Promyelocytes % Cancelled Blast Cells % Cancelled Neutrophils # (Manual) Cancelled Nucleated RBCs Cancelled Differential Comment Cancelled Hypersegmented Neuts Cancelled Reactive Lymphocytes Cancelled Plasma Cells Cancelled Smudge Cells Cancelled Other Cell Type Cancelled Toxic Granulation Cancelled Toxic Vacuolation Cancelled Dohle Bodies Cancelled Laney Rods Cancelled WBC Morphology Comment Cancelled Platelet Estimate Cancelled Clumped Platelets Cancelled Plt Morphology Comment Cancelled RBC Morphology Cancelled Dimorphic RBCs Cancelled Polychromasia Cancelled Hypochromasia Cancelled Poikilocytosis Cancelled Basophilic Stippling Cancelled Anisocytosis Cancelled Microcytosis Cancelled Macrocytosis Cancelled Spherocytes Cancelled Pappenheimer Bodies Cancelled Sickle Cells Cancelled Target Cells Cancelled Tear Drop Cells Cancelled Ovalocytes Cancelled Stomatocytes Cancelled Helmet Cells Cancelled Baldwin-[place] Bodies Cancelled [place] Rings Cancelled Stacey Cells Cancelled Acanthocytes (Spur) Cancelled Rouleaux Cancelled Schistocytes Cancelled Sodium 136 L Potassium 4.0 Chloride 103 Carbon Dioxide 29 BUN 5 L Creatinine 0.66 Estimated GFR > 60.0 BUN/Creatinine Ratio 7.6 Glucose 84 Calcium 8.4 Magnesium 2.0 Total Bilirubin 0.5 AST 148 H ALT 111 H Alkaline Phosphatase 159 H Total Protein 6.5 Albumin 3.3 L Globulin 3.2 Albumin/Globulin Ratio 1.0 [facility] Medical History Alcohol abuse Carpal tunnel syndrome (~2009) Chicken pox Essential hypertension Methamphetamine abuse Morbid obesity Right ankle pain Surgical History History of appendectomy Social History household members: significant other Smoking Status: Current every day smoker alcohol intake: current Discharge Assessment & Plan Assessment and Plan Assessment: Acute cholecystitis Plan of Treatment: Discharge home with p.o. pain meds, and plans to schedule follow-up with Dr. Flores in the next 1-2 week Discharge Plan Discharge Plan Patient Disposition: Home Provider Discharge Comment: Your operation went well. Your gallbladder was quite inflamed. The pain medicine I prescribed is a narcotic and it may constipate you. You may need to take a laxative like milk of magnesia. I have sent the prescription for your pain medicine to your [facility]. Do not make important decisions, drive a car, or operate machinery while taking narcotic pain medication. Discharge orders & Medications Prescriptions: New oxycodone 5 mg tablet See Rx Instructions .ROUTE .COMPLEX PRN (Reason: painful procedure) Qty: 20 RF: 0 Continued losartan 50 mg tablet 50 mg PO DAILY 90 Days Qty: 90 RF: 1 simvastatin 20 mg tablet 20 mg PO BEDTIME 90 Days Qty: 90 RF: 1 Follow up/Referrals: Ann Marie Still ARNP [Primary Care Provider] - Kaushik Flores MD [Physician] - Diet/Activity/Treatments Diet: Diet as Tolerated Activity: Do not lift over 10 lb or strain for the next 4 weeks. You may walk. Skin/Wound/Dressing Care Report to your healthcare provider any signs of infection, such as:: increased pain, unusual drainage and unusual redness Dressing: You may remove the Band-Aids on Thursday and get an a shower. Leave the tape under the Band-Aids which is across your incision fall off on its own. It normally will not come off in the shower. No pool or tub for at least 2 weeks. Visit Report/Discharge Packet Instructions: DI for Prescription Opioid Use, DI for Laparoscopic Cholecystectomy, [facility]: Wound Care Stand Alone Forms: Surgery Discharge Discharge Data Primary Care Provider: Ann Marie Still Attending Provider: Gabriel Melendez VTE Deep Vein Thrombosis/Pulmonary Embolism Present on Admission: No
--- NOTE | 2020-10-27 10:57 | PC.NURSE ---
Addendum entered by Constantine Diana R.N. 10/27/20 14:36: Pt umm. activity and advanced diet. Voided post carter removal. Iv discontinued intact. Discharge instructions given to Pt and boyfriend. Dressings CDI. Pt escorted to car via w/c with [facility]. Original Note: Pt arousable to voice but easily falls back asleep. Gabapentin held. Pt more alert as morning progressing. Dr. Morales in to discuss plan for the day. Pt asking about going home. Will HL IV , d/c carter and advance diet. If Pt progresses Dr. Morales says she can go home this afternoon.
== END 2020-10-27 14:35 | disposition home or self-care (01) ==
LOC: ED 17:59 → AC 21:11
PROVIDERS: Emergency Medicine; Specialist; Admitting Provider Surgery; Emergency Provider Emergency Medicine; PCP Registered Nurse; Referring Provider Emergency Medicine; Visit Provider Surgery
PROC: 0FT44ZZ Resection of Gallbladder, Percutaneous Endoscopic Approach (ICD-10-PCS; CPT 47562; principal; 2020-10-26 16:00)
DX: K80.10 Calculus of gallbladder with chronic cholecystitis without obstruction (principal); I10 Essential (primary) hypertension; E78.5 Hyperlipidemia, unspecified; E66.01 Morbid (severe) obesity due to excess calories; Z68.43 Body mass index [BMI] 50.0-59.9, adult; F17.210 Nicotine dependence, cigarettes, uncomplicated; F15.10 Other stimulant abuse, uncomplicated; F10.10 Alcohol abuse, uncomplicated; Z20.822 Contact with and (suspected) exposure to COVID-19
CPT/HCPCS: 47562; 36415; 73630; 76705; 80053; 81003; 81025; 83690; 83735; 85025; 87635; 93005; 94760; 96361; 96365; 96366; 96372; 96375; 96376; 99219; 99284; 99406; C9803; G0378; J1170; J1650; J1940; J2405; J2543; J2704; J3010

== ENCOUNTER → 2021-05-30 12:08 | Outpatient (CLI) | payer OTHER, MEDICAID, SELFPAY ==
[2020-10-31 15:56] VITALS: BMI 52.5
[2021-05-30 13:23] LABS: COVID19 -Nasal RAPID Negative (Negative)
== END ==
PROVIDERS: PCP Registered Nurse; Referring Provider Nurse Practitioner Family; Visit Provider Nurse Practitioner Family
DX: Z20.822 Contact with and (suspected) exposure to COVID-19 (principal)
CPT/HCPCS: 87635

== ENCOUNTER → 2024-07-18 17:26 | Outpatient (CLI) | payer OTHER, SELFPAY ==
[2020-10-31 15:56] VITALS: BMI 52.5
--- NOTE | 2024-07-18 17:29 | DI.MG.S_ITS ---
BILATERAL DIGITAL SCREENING MAMMOGRAM 3D/2D WITH CAD: 07/18/2024 CLINICAL: Baseline exam. Routine screening. Family history of breast cancer. No prior exams were available for comparison. There are scattered areas of fibroglandular density (category b / 25%-50% glandular tissue). Current study was also evaluated with a Computer Aided Detection (CAD) system. No significant masses, calcifications, or other findings are seen in either breast. IMPRESSION: NEGATIVE There is no mammographic evidence of malignancy. A 1 year screening mammogram is recommended. Based on the Tyrer Cuzick model (a risk assessment model) the patient's lifetime risk is 6.9% and her 10 year risk is 1.2%. According to the ACR, ACS, and NCCN guidelines, an annual breast MRI exam along with mammogram is recommended if the patient's lifetime risk is 20% or greater. This exam was interpreted at Station ID: [id number]. NOTE: For mammograms, a report in lay terms will be sent to the patient. Approximately 15% of breast malignancies will not be visualized mammographically. In the management of a palpable breast mass, a negative mammogram must not discourage biopsy of a clinically suspicious lesion. Electronically Signed By: Brian galvan/good:07/19/2024 14:42:52 letter sent: Normal Exam ACR BI-RADS Category 1: Negative
== END ==
PROVIDERS: PCP Registered Nurse; Referring Provider Registered Nurse; Visit Provider Registered Nurse
DX: Z12.31 Encounter for screening mammogram for malignant neoplasm of breast (principal); Z80.3 Family history of malignant neoplasm of breast
CPT/HCPCS: 77063; 77067